=== PATIENT | female | born 1995 | race Caucasian/White ===

== ENCOUNTER → 2021-08-02 17:44 | Observation (INO) | END | disposition home or self-care (01) | LOC: 1NENULAB | PROVIDERS: ADMIT Registered Nurse; ATTEND Registered Nurse ==

== ENCOUNTER → 2021-09-16 15:03 | Observation (INO) ==
[2021-09-16 13:46] LABS: Basophils % 0.2 %; Eosinophils % 0.4 %; Hematocrit 34.3 % (35.3-44.9); Hemoglobin 11.5 g/dL (11.5-15.4); Lymphocytes # 1.3 K/mcL (0.6-4.6); Lymphocytes % 13.8 %; Mean Corpuscular HGB Conc 33.5 g/dL (31.6-35.5); Mean Corpuscular Hemoglobin 29.9 pg (28.0-33.3); Mean Corpuscular Volume 89.3 fL (83.0-100.0); Mean Platelet Volume 10.1 fL (9.4-12.4); Monocytes # 0.5 K/mcL (0.0-1.3); Monocytes % 5.3 %; Neutrophils # 7.4 K/mcL (1.6-8.9); Platelet Count 235 K/mcL (140-400); Red Blood Count 3.84 M/mcL (3.82-4.97); Red Cell Distribution Width 14.3 % (11.5-14.5); Segmented Neutrophils % 79.3 %; White Blood Count 9.4 K/mcL (4.3-11.1)
[2021-09-16 13:51] LABS: Protein/Creatinine Ratio,Urine 0.21 mg/mg (0.00-0.20)
[2021-09-16 14:25] LABS: Alanine Aminotransferase 11 Units/L (7-52); Aspartate Amino Transferase 15 Units/L (13-39); BUN/Creatinine Ratio 13 (6-26); Blood Urea Nitrogen 6 mg/dL (6-20); Lactate Dehydrogenase 143 Units/L (140-271); eGFR For African Americans > 60 (> 60); eGFR For Non-African Americans > 60 (> 60)
== END | disposition home or self-care (01) ==
LOC: 1NENULAB
PROVIDERS: ADMIT Registered Nurse; ATTEND Registered Nurse

== ENCOUNTER → 2021-10-14 13:30 | Observation (INO) ==
[2021-10-14 12:19] LABS: Basophils % 0.1 %; Eosinophils # 0.1 K/mcL (0.0-0.6); Eosinophils % 0.8 %; Hemoglobin 12.2 g/dL (11.5-15.4); Immature Granulocytes % 0.5 % (0-4); Lymphocytes # 1.3 K/mcL (0.6-4.6); Lymphocytes % 17.5 %; Mean Corpuscular HGB Conc 33.9 g/dL (31.6-35.5); Mean Corpuscular Hemoglobin 30.4 pg (28.0-33.3); Mean Corpuscular Volume 89.8 fL (83.0-100.0); Mean Platelet Volume 10.4 fL (9.4-12.4); Monocytes # 0.5 K/mcL (0.0-1.3); Monocytes % 7.2 %; Neutrophils # 5.5 K/mcL (1.6-8.9); Platelet Count 215 K/mcL (140-400); Red Blood Count 4.01 M/mcL (3.82-4.97); Red Cell Distribution Width 14.5 % (11.5-14.5); Segmented Neutrophils % 73.9 %; White Blood Count 7.4 K/mcL (4.3-11.1)
[2021-10-14 12:25] LABS: Bacteria,Urine Few per hpf (None-Few); Bilirubin,Urine Negative (Negative); Blood,Urine Negative (Negative); Clarity,Urine Turbid (Clear); Color,Urine Light-Yellow (Yellow); Glucose,Urine (UA) Normal (Normal); Ketones,Urine 20 mg/dL (Negative); Leukocyte Esterase,Urine Small (Negative); Mucus,Urine Few per lpf (None-Few); Nitrite,Urine Negative (Negative); PH,Urine 6.5 pH Units (5.0-8.0); Protein,Urine Negative (Neg-Trace); RBC,Urine 0-3 per hpf (0-3); Squamous Epithelial Cell,Urine Moderate per hpf (None-Few); Urobilinogen,Urine Normal (Normal)
[2021-10-14 12:29] LABS: Protein/Creatinine Ratio,Urine 0.23 mg/mg (0.00-0.20)
[2021-10-14 12:39] LABS: Alanine Aminotransferase 12 Units/L (7-52); Aspartate Amino Transferase 15 Units/L (13-39); BUN/Creatinine Ratio 17 (6-26); Blood Urea Nitrogen 8 mg/dL (6-20); Lactate Dehydrogenase 118 Units/L (140-271); Uric Acid 4.5 mg/dL (2.3-7.6); eGFR For African Americans > 60 (> 60); eGFR For Non-African Americans > 60 (> 60)
== END | disposition home or self-care (01) ==
LOC: 1NENULAB
PROVIDERS: ADMIT Registered Nurse; ATTEND Registered Nurse

== ENCOUNTER 2021-11-04 03:55 | Inpatient (IN) ==
[2021-11-04] MEDS ORDERED: Ondansetron 4 MG/2 ML VIAL IVP PRN (04:05)
[2021-11-04] MEDS ORDERED: Famotidine 20 MG/2 ML VIAL IVP PRN (04:05)
[2021-11-04] MEDS ORDERED: Metoclopramide 10 MG/2 ML VIAL IVP PRN (04:05)
[2021-11-04] MEDS ORDERED: Naloxone 0.4 MG/ML INJ IVP PRN (04:05)
[2021-11-04] MEDS ORDERED: Ringers Solution, Lactated 500 ML ONE (04:33)
[2021-11-04 04:44] LABS: Basophils % 0.2 %; Eosinophils # 0.1 K/mcL (0.0-0.6); Eosinophils % 0.8 %; Hematocrit 37.1 % (35.3-44.9); Hemoglobin 12.6 g/dL (11.5-15.4); Immature Granulocytes % 0.6 % (0-4); Lymphocytes # 2.3 K/mcL (0.6-4.6); Lymphocytes % 26.6 %; Mean Corpuscular Hemoglobin 30.4 pg (28.0-33.3); Mean Corpuscular Volume 89.6 fL (83.0-100.0); Mean Platelet Volume 10.9 fL (9.4-12.4); Monocytes # 0.6 K/mcL (0.0-1.3); Monocytes % 6.5 %; Neutrophils # 5.5 K/mcL (1.6-8.9); Platelet Count 197 K/mcL (140-400); Red Blood Count 4.14 M/mcL (3.82-4.97); Red Cell Distribution Width 14.1 % (11.5-14.5); Segmented Neutrophils % 65.3 %; White Blood Count 8.5 K/mcL (4.3-11.1)
[2021-11-04 04:53] LABS: Amphetamine Screen,Urine Negative ng/mL (Cutoff=1000); Barbiturate Screen,Urine Negative ng/mL (Cutoff=200); Benzodiazepines Screen,Urine Negative ng/mL (Cutoff=200); Cannabinoid Screen,Urine Negative ng/mL (Cutoff = 50); Cocaine Screen,Urine Negative ng/mL (Cutoff= 300); Opiate Screen,Urine Negative ng/mL (Cutoff=300); Phencyclidine Screen,Urine Negative ng/mL (Cutoff=25)
[2021-11-04 05:21] LABS: Influenza A PCR Negative (Negative); Influenza B PCR Negative (Negative); Resp. Syncytial Virus PCR Negative (Negative)
[2021-11-04 05:23] LABS: SARS-CoV-2 by PCR (In House) Negative (Negative)
[2021-11-04] MEDS: D5% in Lactated Ringers 1,000 ML IVC SCH ×2 (05:57→22:07)
[2021-11-04] MEDS: miSOPROStoL 25 MCG TABLET PO PRN ×2 (05:57→10:10)
[2021-11-04] MEDS ORDERED: EPHEDrine 50 MG/ML VIAL IVP PRN (07:02)
[2021-11-04] MEDS ORDERED: Epidural Premix (fent/bupiv) 110 ML EP SCH (07:15)
[2021-11-04] MEDS: *HR* Nalbuphine 10 MG/ML AMPUL IV PRN ×2 (11:50→17:08)
[2021-11-04] MEDS ORDERED: *HR* Phenylephrine 10 MG/ML VIAL ONE (12:06)
[2021-11-04] MEDS ORDERED: Ondansetron 4 MG/2 ML VIAL ONE (12:09)
[2021-11-04] MEDS: Oxytocin 30 UNIT/503 ML BAG IVC SCH (14:48)
[2021-11-04] MEDS ORDERED: Ringers Solution, Lactated 1,000 ML ONE (16:47)
[2021-11-05] MEDS ORDERED: Famotidine 20 MG/2 ML VIAL IVP ONE (06:02)
[2021-11-05] MEDS: D5% in Lactated Ringers 1,000 ML IVC SCH (07:04)
[2021-11-05] MEDS: Oxytocin 30 UNIT/503 ML BAG IVC SCH (09:27)
[2021-11-05] MEDS ORDERED: Acetaminophen 325 MG TABLET PO ONE (10:38)
[2021-11-05] MEDS ORDERED: Methylergonovine 0.2 MG/ML AMPUL IM ONE (18:15)
[2021-11-05] MEDS ORDERED: Benzocaine/Menthol 56 GM AEROSOL SPRAY TP PRN (18:27)
[2021-11-05] MEDS ORDERED: OXYTOCIN/RINGERS LACTATE 10 UNIT/166.6 ML BAG IVC ONE (18:27)
[2021-11-05] MEDS ORDERED: Lanolin 7 G OINT...G. TP PRN (18:27)
[2021-11-05] MEDS ORDERED: Measles/Mumps/Rubella Vacc 0.5 ML VIAL SQ PRN (18:27)
[2021-11-05] MEDS ORDERED: Rho Immune Globulin 1,500 UNIT SYRINGE IM PRN (18:27)
[2021-11-05] MEDS ORDERED: Ondansetron ODT 4 MG TAB.RAPDIS SL PRN (18:27)
[2021-11-05] MEDS ORDERED: Ringers Solution, Lactated 1,000 ML ONE (18:39)
[2021-11-05] MEDS: *HR* OxyCODONE Immed Rel 5 MG TABLET PO PRN (18:42)
[2021-11-05] MEDS ORDERED: Oxytocin 30 UNIT/503 ML BAG IVC ONE (19:26)
[2021-11-05 19:28] LABS: Basophils % 0.1 %; Hematocrit 35.3 % (35.3-44.9); Hemoglobin 12.1 g/dL (11.5-15.4); Immature Granulocytes % 0.6 % (0-4); Lymphocytes # 0.7 K/mcL (0.6-4.6); Lymphocytes % 3.6 %; Mean Corpuscular HGB Conc 34.3 g/dL (31.6-35.5); Mean Corpuscular Hemoglobin 30.6 pg (28.0-33.3); Mean Corpuscular Volume 89.1 fL (83.0-100.0); Mean Platelet Volume 10.4 fL (9.4-12.4); Monocytes # 1.1 K/mcL (0.0-1.3); Monocytes % 5.7 %; Neutrophils # 17.6 K/mcL (1.6-8.9); Platelet Count 188 K/mcL (140-400); Red Blood Count 3.96 M/mcL (3.82-4.97); Red Cell Distribution Width 14.3 % (11.5-14.5); White Blood Count 19.5 K/mcL (4.3-11.1)
[2021-11-05] MEDS: Ibuprofen 600 MG TABLET PO SCH (20:19)
[2021-11-05] MEDS ORDERED: Famotidine 20 MG TABLET PO ONE (20:40)
[2021-11-05] MEDS: Acetaminophen 325 MG TABLET PO SCH (21:13)
[2021-11-06 02:03] VITALS: TEMP 98.1
[2021-11-06] MEDS: Ibuprofen 600 MG TABLET PO SCH ×3 (02:15→17:06)
[2021-11-06 04:52] VITALS: BP 121/80; O2SAT 98
[2021-11-06] MEDS: Acetaminophen 325 MG TABLET PO SCH ×2 (04:52→10:05)
[2021-11-06 05:15] LABS: Basophils % 0.2 %; Eosinophils % 0.2 %; Hematocrit 29.6 % (35.3-44.9); Immature Granulocytes % 0.5 % (0-4); Lymphocytes # 1.9 K/mcL (0.6-4.6); Lymphocytes % 14.3 %; Mean Corpuscular HGB Conc 34.1 g/dL (31.6-35.5); Mean Corpuscular Hemoglobin 31.1 pg (28.0-33.3); Mean Corpuscular Volume 91.1 fL (83.0-100.0); Mean Platelet Volume 11.3 fL (9.4-12.4); Monocytes # 0.9 K/mcL (0.0-1.3); Monocytes % 6.8 %; Neutrophils # 10.3 K/mcL (1.6-8.9); Platelet Count 165 K/mcL (140-400); Red Blood Count 3.25 M/mcL (3.82-4.97); Red Cell Distribution Width 14.6 % (11.5-14.5); White Blood Count 13.2 K/mcL (4.3-11.1)
[2021-11-06 05:16] LABS: Hemoglobin 10.1 g/dL (11.5-15.4)
[2021-11-06] MEDS ORDERED: Prenatal Vit/FA 1 EACH TABLET PO SCH (09:00)
[2021-11-06] MEDS ORDERED: NON-FORMULARY MEDICATION 1 EACH EACH (Prenatal Vitamin Tablet 1 TAB) PO SCH (09:00)
[2021-11-06] MEDS ORDERED: FERROUS SULFATE PO SCH (09:00)
[2021-11-06] MEDS: *HR* OxyCODONE Immed Rel 5 MG TABLET PO PRN (11:30)
[2021-11-06 16:08] VITALS: PULSE 96
== END 2021-11-06 18:16 | disposition home or self-care (01) | DRG 807 ==
LOC: 1NENULAB 03:55 → 1NENUOBS 11-05 20:02
PROVIDERS: ADMIT Obstetrics & Gynecology; ATTEND Obstetrics & Gynecology